=== PATIENT | female | born 1970 | race Caucasian/White ===

== ENCOUNTER 2018-03-04 08:10 | Emergency (ER) | payer OTHER ==
[~2018-03-04] VITALS: Ht 175.3 cm; Wt 77.2 kg
[~2018-03-04 08:10] MED LIST: NOHOMEMEDS
[2018-03-04 08:52] LABS: APPEARANCE SL.HAZY ((CLEAR)); BILIRUBIN NEGATIVE; BLOOD NEGATIVE; COLOR YELLOW ((YELLOW)); GLUCOSE (STRIP) NEGATIVE; KETONES 5; LEUKOCYTES SMALL; NITRITE NEGATIVE; PROTEIN (STRIP) 30; SPECIFIC GRAVITY 1.027 (1.000-1.030); UROBILINOGEN 0.2 MG/DL (0.2-1.0)
[2018-03-04 08:56] LABS: BACTERIA 1+ /HPF; CALCIUM OXALATE CRYSTALS 2+ /HPF; EPITHELIAL CELLS 2+ /HPF; HYALINE CASTS 0-5 /LPF; MUCUS 3+ /LPF; UCUL ADDED? NO; WHITE BLOOD CELLS 0-5 /HPF (0-5)
[2018-03-04 09:47] LABS: HEMATOCRIT 39.4 % (36.0-46.0); HEMOGLOBIN 13.4 G/DL (11.9-15.5); MCH 29.5 PG (29.0-34.0); MCV 86.8 FL (83-99); PLATELET COUNT 265 K/uL (156-360); RBC DIS.WIDTH-SD 40.8 % (39-53); RED BLOOD COUNT 4.54 M/uL (3.80-5.20); WHITE BLOOD COUNT 9.3 K/uL (4.1-10.2)
[2018-03-04 10:00] LABS: CHLORIDE 105 mEq/L (99-109); POTASSIUM 4.3 mEq/L (3.7-5.4); SODIUM 141 mEq/L (136-147)
[2018-03-04 10:02] LABS: GLUCOSE 102 mg/dL (70-99)
[2018-03-04 10:06] LABS: CREATININE 0.9 mg/dL (0.6-1.3); GFR ESTIMATE (CALCULATED) > 59 mL/min/
[2018-03-04 10:07] LABS: UREA NITROGEN (BUN) 9 mg/dL (9-23)
[2018-03-04 11:55] VITALS: BP 141/85
== END 2018-03-04 11:57 | disposition home or self-care (01) ==
LOC: EME 08:10
DX: R00.2 Palpitations (principal)
CPT/HCPCS: 80048; 81003; 85027; 93005; 99281; 99284